=== PATIENT | male | born 1975 | race Caucasian/White ===

== ENCOUNTER 2020-03-08 14:06 | Outpatient (CLI) | payer BC | END 2020-03-08 23:59 | disposition home or self-care (01) | LOC: XRAY 14:06 | DX: M47.817 Spondylosis without myelopathy or radiculopathy, lumbosacral region (principal); M48.07 Spinal stenosis, lumbosacral region; M50.822 Other cervical disc disorders at C5-C6 level; M51.86 Other intervertebral disc disorders, lumbar region; M43.8X6 Other specified deforming dorsopathies, lumbar region; M25.78 Osteophyte, vertebrae | CPT/HCPCS: 72050; 72110 ==